=== PATIENT | male | born 1975 | race Hispanic/Latino ===

== ENCOUNTER 2017-06-02 21:35 | Emergency (ER) | payer MEDICAID ==
[~2017-06-02] VITALS: Ht 188 cm; Wt 75.0 kg
[2017-06-02 22:25] LABS: HEMATOCRIT 35.8 % (39.0-50.0); HEMOGLOBIN 11.3 g/dl (14.0-18.0); IMMATURE GRANULOCYTES 0.4 % (0.0-1.0); MEAN CELL VOLUME 91.1 fL CALC (80.0-100.0); MEAN CORPUSCULAR HGB 28.8 pG CALC (26.0-32.0); MEAN CORPUSCULAR HGB CONC 31.6 g/L CALC (32.0-36.0); NEUT# 6.22 thou/uL (1.82-7.42); RED BLOOD COUNT 3.93 mill/uL (4.70-6.10); RED CELL DISTRI WIDTH 13.8 % (11.5-15.5)
[2017-06-02 22:42] LABS: ALBUMIN 3.8 g/dL (3.2-5.0); BILIRUBIN, TOTAL 0.3 mg/dL (0.0-1.4); TOTAL PROTEIN 6.3 g/dL (6.3-8.2)
[2017-06-02 22:44] LABS: ACT PARTIAL THROMBO TIME 21.4 SECONDS (20.0-32.5); PROTHROMBIN TIME 11.3 SECONDS (9.0-12.5)
[2017-06-02] MEDS ORDERED: VERAPAMIL240 M1 PO (23:00)
[2017-06-02] MEDS ORDERED: HYDROCHLOROT25 MG PO (23:01)
[2017-06-02] MEDS ORDERED: LISINOPRIL20 MG PO (23:01)
[2017-06-02] MEDS ORDERED: PLAVIX75 MG PO (23:03)
[2017-06-02 23:35] LABS: POTASSIUM 6.2 mmol/l (3.5-5.1)
[2017-06-03 00:05] VITALS: BP 142/100
== END 2017-06-03 00:03 | disposition short-term general hospital (02) | DRG 683 ==
LOC: ED 21:35
PROVIDERS: Emergency Medicine
DX: N17.9 Acute kidney failure, unspecified (principal); E87.2 Acidosis; R07.9 Chest pain, unspecified; R79.89 Other specified abnormal findings of blood chemistry; R00.0 Tachycardia, unspecified; R05 Cough; R06.02 Shortness of breath; R11.10 Vomiting, unspecified; Z86.73 Personal history of transient ischemic attack (TIA), and cerebral infarction without residual deficits